=== PATIENT | female | born 1950 | race African-American/Black ===

== ENCOUNTER 2023-06-15 20:18 | Emergency (ER) | payer OTHER, BC ==
[2023-06-15 20:44] VITALS: BP 160/90; PULSE 107; RESP 18; TEMP 98.9; BMI 30.1
== END 2023-06-15 21:58 | disposition home or self-care (01) ==
LOC: JERFT 20:18 → JER 20:18 → JERFT 21:58
DX: S92.901A Unspecified fracture of right foot, initial encounter for closed fracture (principal); M79.671 Pain in right foot; M25.571 Pain in right ankle and joints of right foot; R22.41 Localized swelling, mass and lump, right lower limb
CPT/HCPCS: 73610-TC-RT-FY; 73630-TC-RT-FY; 99283-25

== ENCOUNTER 2023-09-29 23:12 | Inpatient (IN) | payer OTHER, BC ==
[2023-09-30 02:04] LABS: BASO % 0.2 % (0-2.0); EOS % 0.1 % (0-4.5); HEMATOCRIT 37.8 % (32.4-45.2); HEMOGLOBIN 12.4 GM/dL (10.7-15.3); LYMPH % 17.2 % (8-40); MCH 28.2 pg (25.7-33.7); MCHC 32.9 g/dl (32.0-36.0); MEAN CELL VOLUME 85.8 fl (80-96); MEAN PLT VOLUME 9.4 fl (7.5-11.1); MONO % 6.9 % (3.8-10.2); NEUT % 75.6 % (42.8-82.8); PLATELET COUNT 278 10^3/uL (134-434); RBC 4.41 M/mm3 (3.60-5.2); RDW 14.8 % (11.6-15.6); WHITE BLOOD COUNT 15.5 K/mm3 (4.0-10.0)
[2023-09-30 02:18] LABS: CHLORIDE 100 mmol/L (98-107); SODIUM 141 mmol/L (136-145)
[2023-09-30 02:20] LABS: BLOOD UREA NITROGEN 24.6 mg/dL (7-18); CALCIUM 10.2 mg/dL (8.5-10.1); CO2 31 mmol/L (21-32)
[2023-09-30 02:21] LABS: GLUCOSE,RANDOM 95 mg/dL (74-106)
[2023-09-30 02:23] LABS: SGPT/ALT 12 U/L (13-61)
[2023-09-30 02:24] LABS: CREATININE 1.1 mg/dL (0.55-1.3); SGOT/AST 27 U/L (15-37)
[2023-09-30 02:25] LABS: BILIRUBIN,TOTAL 0.9 mg/dL (0.2-1); TOT PROT 8.5 g/dl (6.4-8.2)
[2023-09-30 02:27] LABS: ALK PHOS 116 U/L (45-117)
[2023-09-30 03:01] LABS: ANION GAP 11 mmol/L (4-13); POTASSIUM 2.8 mmol/L (3.5-5.1)
[2023-09-30 03:03] LABS: EPI CELLS 30 /uL (0-25.1); HYALINE CASTS 2 /uL (0-3.1); PH,URINE 5.5 (5.0-8.0); URINE APPEARANCE TURBID; URINE BACTERIA 91 /uL (0-1359); URINE BILIRUBIN 2+ (NEGATIVE); URINE COLOR DK YELLOW; URINE GLUCOSE (UA) NEGATIVE (NEGATIVE); URINE KETONE 2+ (NEGATIVE); URINE LEUK ESTERASE 1+ (NEGATIVE); URINE NITRITE NEGATIVE (NEGATIVE); URINE PROTEIN 2+ (NEGATIVE); URINE RBC 6 /uL (0-23.9); URINE WBC 37 /uL (0-25.8)
[2023-09-30 03:08] LABS: COCAINE, UR NEGATIVE (NEGATIVE); METHADONE, UR NEGATIVE (NEGATIVE); PHENCYCLIDINE,URINE NEGATIVE (NEGATIVE); URINE BENZODIAZEPINES NEGATIVE (NEGATIVE)
[2023-09-30 03:09] LABS: URINE AMPHETAMINES NEGATIVE (NEGATIVE); URINE BARBITURATES NEGATIVE (NEGATIVE)
[2023-09-30 03:10] LABS: OPIATES, URI POSITIVE (NEGATIVE)
[2023-09-30] MEDS ORDERED: POTASSIUM CHLORIDE ORAL LIQUID 20 MEQ/15 ML PO ONE (03:15)
[2023-09-30] MEDS ORDERED: KCL 10 MEQ IVPB 20 MEQ/200 ML INFUS.BAG IVPB ONE (04:09)
[2023-09-30] MEDS ORDERED: POTASSIUM CHLORIDE ORAL LIQUID 20 MEQ/15 ML ONE (04:09)
[2023-09-30] MEDS: KCL 10 MEQ IVPB 10 MEQ/100 ML INFUS.BAG IVPB SCH ×3 (04:30→09:03)
[2023-09-30 05:17] LABS: URINE CRYSTALS NONE SEEN /hpf
[2023-09-30] MEDS ORDERED: CEFTRIAXONE 1,000 MG in DEXTROSE 5%-WATER - 50 ML IVPB ONE (05:32)
[2023-09-30] MEDS ORDERED: AZITHROMYCIN IVPB 500 MG in DEXTROSE 5%-WATER - 250 ML IVPB ONE (05:33)
[2023-09-30] MEDS ORDERED: DOCUSATE SODIUM 100 MG CAPSULE (FP) PO PRN (05:33)
[2023-09-30] MEDS ORDERED: ACETAMINOPHEN 325 MG TABLET (FP) PO PRN (05:33)
[2023-09-30] MEDS ORDERED: CEFTRIAXONE 1 GM/50 ML BAG ONE (06:05)
[2023-09-30] MEDS: DEXTROSE 5%-NORMAL SALINE 1,000 ML IV SCH ×2 (06:20→21:39)
[2023-09-30 08:51] LABS: LIPASE 184 U/L (73-393)
[2023-09-30] MEDS ORDERED: KCL 10 MEQ IVPB 10 MEQ/100 ML INFUS.BAG IVPB ONE (09:03)
[2023-09-30] MEDS ORDERED: AZITHROMYCIN IVPB 500 MG/250 ML BAG IVPB ONE ×2 (09:30→10:31)
[2023-09-30] MEDS ORDERED: ACETAMINOPHEN WITH CODEINE 300MG/30MG TABLET PO PRN (09:36)
[2023-09-30] MEDS ORDERED: ALBUTEROL SO4 HFA INHALER IH PRN (09:40)
[2023-09-30] MEDS ORDERED: LOSARTAN POTASSIUM 25 MG TABLET ONE (10:50)
[2023-09-30] MEDS: SERTRALINE HCL 50 MG TABLET (FP) PO SCH (11:14)
[2023-09-30] MEDS: LOSARTAN POTASSIUM 50 MG TABLET PO SCH (11:14)
[2023-09-30 11:53] LABS: ALBUMIN 3.5 g/dl (3.4-5.0); MAGNESIUM 2.1 mg/dL (1.8-2.4)
[2023-09-30 11:58] LABS: BILIRUBIN,TOTAL 0.9 mg/dL (0.2-1); TOT PROT 7.7 g/dl (6.4-8.2)
[2023-09-30 13:03] LABS: POTASSIUM 3.3 mmol/L (3.5-5.1)
[2023-09-30 13:04] LABS: CALCIUM 9.7 mg/dL (8.5-10.1)
[2023-09-30 13:13] LABS: ACTIVATED PTT 36.2 SECONDS (25.2-36.5); INR 1.2 (0.83-1.09); PROTHROMBIN TIME (PATIENT) 13.9 SEC (9.7-13.0)
[2023-09-30] MEDS ORDERED: GABAPENTIN 300 MG CAPSULE ONE (14:48)
[2023-09-30] MEDS: GABAPENTIN 300 MG CAPSULE PO SCH ×2 (14:50→21:30)
[2023-09-30] MEDS ORDERED: POTASSIUM CHLORIDE TABS 20 MEQ TABLET.ER (FP) PO ONE ×2 (15:42→16:40)
[2023-09-30 19:54] VITALS: BMI 27.3
[2023-10-01] MEDS: GABAPENTIN 300 MG CAPSULE PO SCH ×3 (05:17→22:01)
[2023-10-01 10:13] LABS: BASO % 0.5 % (0-2.0); EOS % 1.8 % (0-4.5); HEMATOCRIT 36.1 % (32.4-45.2); HEMOGLOBIN 11.4 GM/dL (10.7-15.3); LYMPH % 20.5 % (8-40); MCH 27.6 pg (25.7-33.7); MCHC 31.7 g/dl (32.0-36.0); MEAN CELL VOLUME 87.1 fl (80-96); MEAN PLT VOLUME 9.1 fl (7.5-11.1); MONO % 8.3 % (3.8-10.2); NEUT % 68.9 % (42.8-82.8); PLATELET COUNT 264 10^3/uL (134-434); RBC 4.15 M/mm3 (3.60-5.2); RDW 14.9 % (11.6-15.6); WHITE BLOOD COUNT 13.2 K/mm3 (4.0-10.0)
[2023-10-01] MEDS: CEFTRIAXONE 1 GM in DEXTROSE 5%-WATER - 50 ML IVPB SCH (10:45)
[2023-10-01] MEDS: LOSARTAN POTASSIUM 50 MG TABLET PO SCH (10:45)
[2023-10-01] MEDS: SERTRALINE HCL 50 MG TABLET (FP) PO SCH (10:45)
[2023-10-01] MEDS: AZITHROMYCIN IVPB 500 MG/250 ML BAG IVPB SCH (10:46)
[2023-10-01 11:22] LABS: BLOOD UREA NITROGEN 13.6 mg/dL (7-18); CALCIUM 9.4 mg/dL (8.5-10.1); CREATININE 0.9 mg/dL (0.55-1.3); POTASSIUM 3.4 mmol/L (3.5-5.1)
[2023-10-01] MEDS: DEXTROSE 5%-NORMAL SALINE 1,000 ML IV SCH (14:59)
[2023-10-02] MEDS: DEXTROSE 5%-NORMAL SALINE 1,000 ML IV SCH (05:00)
[2023-10-02] MEDS: GABAPENTIN 300 MG CAPSULE PO SCH ×3 (06:23→22:15)
[2023-10-02 07:20] LABS: BASO % 0.3 % (0-2.0); EOS % 1.6 % (0-4.5); HEMATOCRIT 32.9 % (32.4-45.2); HEMOGLOBIN 10.4 GM/dL (10.7-15.3); MCH 28.1 pg (25.7-33.7); MCHC 31.5 g/dl (32.0-36.0); MEAN CELL VOLUME 89.2 fl (80-96); MEAN PLT VOLUME 9.6 fl (7.5-11.1); MONO % 8.4 % (3.8-10.2); NEUT % 66.7 % (42.8-82.8); PLATELET COUNT 245 10^3/uL (134-434); RBC 3.69 M/mm3 (3.60-5.2); RDW 14.8 % (11.6-15.6); WHITE BLOOD COUNT 12.2 K/mm3 (4.0-10.0)
[2023-10-02 07:36] LABS: POTASSIUM 3.3 mmol/L (3.5-5.1)
[2023-10-02 07:41] LABS: CREATININE 0.8 mg/dL (0.55-1.3)
[2023-10-02 07:43] LABS: ALBUMIN 3.1 g/dl (3.4-5.0); BLOOD UREA NITROGEN 13.4 mg/dL (7-18)
[2023-10-02 07:47] LABS: BILIRUBIN,TOTAL 0.6 mg/dL (0.2-1)
[2023-10-02 07:48] LABS: TOT PROT 6.8 g/dl (6.4-8.2)
[2023-10-02] MEDS: LOSARTAN POTASSIUM 50 MG TABLET PO SCH (09:59)
[2023-10-02] MEDS: CEFTRIAXONE 1 GM in DEXTROSE 5%-WATER - 50 ML IVPB SCH (09:59)
[2023-10-02] MEDS: SERTRALINE HCL 50 MG TABLET (FP) PO SCH (09:59)
[2023-10-02] MEDS: AZITHROMYCIN IVPB 500 MG/250 ML BAG IVPB SCH (10:10)
[2023-10-02] MEDS: POTASSIUM CHLORIDE ORAL LIQUID 20 MEQ/15 ML PO SCH (22:15)
[2023-10-03] MEDS: GABAPENTIN 300 MG CAPSULE PO SCH ×2 (07:09→14:08)
[2023-10-03 08:04] LABS: BASO % 0.3 % (0-2.0); EOS % 2.4 % (0-4.5); HEMATOCRIT 35.1 % (32.4-45.2); HEMOGLOBIN 11.2 GM/dL (10.7-15.3); LYMPH % 20.7 % (8-40); MCH 28.4 pg (25.7-33.7); MCHC 31.9 g/dl (32.0-36.0); MEAN CELL VOLUME 89.2 fl (80-96); MEAN PLT VOLUME 9.5 fl (7.5-11.1); MONO % 7.3 % (3.8-10.2); NEUT % 69.3 % (42.8-82.8); PLATELET COUNT 238 10^3/uL (134-434); RBC 3.93 M/mm3 (3.60-5.2); RDW 14.7 % (11.6-15.6); WHITE BLOOD COUNT 11.5 K/mm3 (4.0-10.0)
[2023-10-03 08:12] LABS: POTASSIUM 4.1 mmol/L (3.5-5.1)
[2023-10-03 08:14] LABS: ALBUMIN 3.4 g/dl (3.4-5.0); BLOOD UREA NITROGEN 10.1 mg/dL (7-18); CALCIUM 9.6 mg/dL (8.5-10.1)
[2023-10-03 08:17] LABS: CREATININE 0.8 mg/dL (0.55-1.3)
[2023-10-03 08:19] LABS: BILIRUBIN,TOTAL 0.5 mg/dL (0.2-1); TOT PROT 7.5 g/dl (6.4-8.2)
[2023-10-03] MEDS: CEFTRIAXONE 1 GM in DEXTROSE 5%-WATER - 50 ML IVPB SCH (10:47)
[2023-10-03] MEDS: POTASSIUM CHLORIDE ORAL LIQUID 20 MEQ/15 ML PO SCH (10:47)
[2023-10-03] MEDS: SERTRALINE HCL 50 MG TABLET (FP) PO SCH (10:48)
[2023-10-03] MEDS: AZITHROMYCIN IVPB 500 MG/250 ML BAG IVPB SCH ×2 (10:48→11:15)
[2023-10-03] MEDS: LOSARTAN POTASSIUM 50 MG TABLET PO SCH (10:48)
[2023-10-03 13:47] VITALS: BP 152/88; PULSE 90; RESP 18; TEMP 98.4
== END 2023-10-03 17:04 | disposition home or self-care (01) | DRG 193 ==
LOC: JER 23:12 → JERBED 09-30 05:33 → J4W 09-30 18:23
PROVIDERS: ADMIT Internal Medicine; ATTEND Family Medicine
DX: J18.9 Pneumonia, unspecified organism (principal); G93.41 Metabolic encephalopathy; E87.6 Hypokalemia; I10 Essential (primary) hypertension; I25.10 Atherosclerotic heart disease of native coronary artery without angina pectoris; F17.210 Nicotine dependence, cigarettes, uncomplicated
CPT/HCPCS: 0241U-QW; 36415; 70450-TC; 70551-TC; 71045-TC-FY; 71250-TC; 72170-TC-FY; 74176-TC; 80048; 80053; 80307; 81003; 82140; 83690; 83735; 83993; 84484; 85025; 85610; 85730; 86480; 87040; 87045; 87046; 87086; 87186; 87205; 87209; 87324; 87449; 87899; 93005; 93010; 99285-25

== ENCOUNTER 2024-06-28 19:17 | Inpatient (IN) | payer OTHER, BC ==
[2024-06-28 19:51] VITALS: BMI 30.7
[2024-06-28] MEDS ORDERED: ACETAMINOPHEN INJECTION 100 ML ONE (19:59)
[2024-06-28] MEDS: SODIUM CHLORIDE 1,000 ML IV STA ×2 (20:16→23:14)
[2024-06-28] MEDS: ACETAMINOPHEN 1000 MG/100 ML BAG IVPB ONE (20:16)
[2024-06-28 20:27] LABS: BASO % 0.3 % (0-2.0); EOS % 1.5 % (0-4.5); HEMOGLOBIN 8.8 GM/dL (10.7-15.3); MCH 25.5 pg (25.7-33.7); MCHC 31.4 g/dl (32.0-36.0); MEAN CELL VOLUME 81.2 fl (80-96); MONO % 8.1 % (3.8-10.2); NEUT % 69.1 % (42.8-82.8); PLATELET COUNT 271 10^3/uL (134-434); RBC 3.45 M/mm3 (3.60-5.2); RDW 17.7 % (11.6-15.6); WHITE BLOOD COUNT 12.6 K/mm3 (4.0-10.0)
[2024-06-28 20:46] LABS: INR 1.09 (0.83-1.09); PROTHROMBIN TIME (PATIENT) 12.5 SEC (9.7-13.0)
[2024-06-28 20:48] LABS: ACTIVATED PTT 37.2 SECONDS (25.2-36.5)
[2024-06-28 20:53] LABS: POTASSIUM 4.5 mmol/L (3.5-5.1)
[2024-06-28 20:55] LABS: ALBUMIN 3.6 g/dl (3.4-5.0); BLOOD UREA NITROGEN 39.8 mg/dL (7-18)
[2024-06-28 20:59] LABS: CREATININE 3.9 mg/dL (0.55-1.3); PHOSPHOROUS 4.3 mg/dL (2.5-4.9)
[2024-06-28 21:00] LABS: BILIRUBIN,TOTAL 0.2 mg/dL (0.2-1); TOT PROT 7.7 g/dl (6.4-8.2)
[2024-06-28] MEDS: LACTATED RINGERS SOLUTION 1000 ML INFUS.BAG IV ONE (23:14)
[2024-06-28] MEDS ORDERED: FENTANYL CITRATE/PF 50 MCG/ML VIAL ONE (23:43)
[2024-06-29 01:05] LABS: EPI CELLS 10 /uL (0-25.1); HYALINE CASTS 5 /uL (0-3.1); URINE APPEARANCE CLEAR; URINE BACTERIA 1 /uL (0-1359); URINE BILIRUBIN NEGATIVE (NEGATIVE); URINE COLOR YELLOW; URINE GLUCOSE (UA) NEGATIVE (NEGATIVE); URINE KETONE TRACE (NEGATIVE); URINE LEUK ESTERASE NEGATIVE (NEGATIVE); URINE NITRITE NEGATIVE (NEGATIVE); URINE PROTEIN 1+ (NEGATIVE); URINE RBC 9 /uL (0-23.9); URINE UROBILINOGEN 0.2 mg/dL (0.2-1.0); URINE WBC 16 /uL (0-25.8)
[2024-06-29] MEDS: ACETAMINOPHEN 1000 MG/100 ML BAG IVPB ONE (04:19)
[2024-06-29 06:11] LABS: BASO % 0.2 % (0-2.0); EOS % 1.7 % (0-4.5); HEMATOCRIT 31.8 % (32.4-45.2); HEMOGLOBIN 9.9 GM/dL (10.7-15.3); LYMPH % 20.3 % (8-40); MCH 25.7 pg (25.7-33.7); MCHC 31.2 g/dl (32.0-36.0); MEAN CELL VOLUME 82.4 fl (80-96); MEAN PLT VOLUME 8.5 fl (7.5-11.1); MONO % 7.9 % (3.8-10.2); NEUT % 69.9 % (42.8-82.8); PLATELET COUNT 285 10^3/uL (134-434); RBC 3.86 M/mm3 (3.60-5.2); RDW 17.6 % (11.6-15.6); WHITE BLOOD COUNT 13.1 K/mm3 (4.0-10.0)
[2024-06-29 06:33] LABS: POTASSIUM 3.8 mmol/L (3.5-5.1)
[2024-06-29 06:35] LABS: CALCIUM 9.8 mg/dL (8.5-10.1)
[2024-06-29 06:36] LABS: ALBUMIN 3.3 g/dl (3.4-5.0); BLOOD UREA NITROGEN 32.9 mg/dL (7-18); MAGNESIUM 1.8 mg/dL (1.8-2.4)
[2024-06-29 06:39] LABS: CREATININE 2.2 mg/dL (0.55-1.3)
[2024-06-29 06:40] LABS: BILIRUBIN,TOTAL 0.4 mg/dL (0.2-1); TOT PROT 7.4 g/dl (6.4-8.2)
[2024-06-29] MEDS: metoPROLOL SUCCINATE 25 MG TAB.SR.24H (FP) PO SCH (11:51)
[2024-06-29] MEDS: NICOTINE 14 MG/24 HOURS TOPICAL PATCH TD SCH (11:51)
[2024-06-29] MEDS: SERTRALINE HCL 50 MG TABLET (FP) PO SCH (11:51)
[2024-06-29] MEDS: oxyCODONE HCL 5 MG TABLET PO PRN (14:04)
[2024-06-29] MEDS: GABAPENTIN 300 MG CAPSULE PO SCH (14:04)
[2024-06-29] MEDS: SODIUM CHLORIDE 0.45% 1,000 ML IV SCH (14:09)
[2024-06-29] MEDS: FLUTICASONE/UMECLIDIN/VILANTER(100-62.5-25 TRELEGY ELLIPTA) INAHLER IH SCH (15:59)
[2024-06-29] MEDS: MONTELUKAST NA 10 MG TABLET PO SCH (21:37)
[2024-06-30 08:11] LABS: BASO % 0.5 % (0-2.0); EOS % 1.3 % (0-4.5); HEMOGLOBIN 8.9 GM/dL (10.7-15.3); LYMPH % 19.1 % (8-40); MCHC 31.9 g/dl (32.0-36.0); MEAN CELL VOLUME 81.5 fl (80-96); MEAN PLT VOLUME 8.2 fl (7.5-11.1); MONO % 6.8 % (3.8-10.2); NEUT % 72.3 % (42.8-82.8); PLATELET COUNT 274 10^3/uL (134-434); RBC 3.43 M/mm3 (3.60-5.2); WHITE BLOOD COUNT 10.8 K/mm3 (4.0-10.0)
[2024-06-30 08:15] LABS: POTASSIUM 4.1 mmol/L (3.5-5.1)
[2024-06-30 08:18] LABS: BLOOD UREA NITROGEN 16.9 mg/dL (7-18); CALCIUM 10.2 mg/dL (8.5-10.1)
[2024-06-30 08:22] LABS: CREATININE 0.8 mg/dL (0.55-1.3)
[2024-06-30 08:23] LABS: BILIRUBIN,TOTAL 0.4 mg/dL (0.2-1); TOT PROT 6.7 g/dl (6.4-8.2)
[2024-06-30] MEDS: ACETAMINOPHEN 1000 MG/100 ML BAG IVPB PRN (12:02)
[2024-06-30] MEDS: LIDOCAINE 4% PATCH TP SCH (22:47)
[2024-06-30] MEDS: ACETAMINOPHEN 1000 MG/100 ML BAG IVPB ONE (23:27)
[2024-07-01 09:35] LABS: BLOOD UREA NITROGEN 9.4 mg/dL (7-18)
[2024-07-01 09:37] LABS: CREATININE 0.7 mg/dL (0.55-1.3)
[2024-07-01 09:39] LABS: BILIRUBIN,TOTAL 0.7 mg/dL (0.2-1)
[2024-07-01] MEDS: LIDOCAINE PATCH REMOVAL MC SCH (11:01)
[2024-07-01] MEDS: oxyCODONE HCL 5 MG TABLET PO ONE (16:44)
[2024-07-01] MEDS: oxyCODONE HCL 5 MG TABLET PO PRN (21:19)
[2024-07-03 12:12] VITALS: RESP 17; TEMP 98.4
[2024-07-03] MEDS: ACETAMINOPHEN 325 MG TABLET (FP) PO SCH (13:50)
[2024-07-03 14:41] VITALS: BP 138/71; PULSE 75
== END 2024-07-03 15:57 | DRG 683 ==
LOC: JER 19:17 → JERBED 23:39 → J4S 06-29 06:36
PROVIDERS: ADMIT Internal Medicine; ATTEND Family Medicine
DX: N17.9 Acute kidney failure, unspecified (principal); I24.89 Other forms of acute ischemic heart disease; M62.82 Rhabdomyolysis; I10 Essential (primary) hypertension; I25.10 Atherosclerotic heart disease of native coronary artery without angina pectoris; M25.552 Pain in left hip; F32.A Depression, unspecified; R91.8 Other nonspecific abnormal finding of lung field; F17.210 Nicotine dependence, cigarettes, uncomplicated; N28.1 Cyst of kidney, acquired; W19.XXXA Unspecified fall, initial encounter; Y93.89 Activity, other specified; Y92.002 Bathroom of unspecified non-institutional (private) residence as the place of occurrence of the external cause; Y99.8 Other external cause status
CPT/HCPCS: 36415; 70450-TC; 71045-TC-FY; 72125-TC; 72170-TC-FY; 73502-TC-LT-FY; 74176-TC; 80053; 80061; 81003; 82550; 82553; 82728; 82962; 83550; 83735; 84100; 84443; 84484; 85025; 85610; 85730; 87086; 87635; 93005; 93010; 93306-TC; 97116-GP; 97162-GP; 99285-25; J0131

== ENCOUNTER 2025-05-04 02:03 | Inpatient (IN) | payer OTHER, BC ==
[2025-05-04 02:10] VITALS: BMI 25.7
[2025-05-04 02:52] LABS: MCHC 30.5 g/dl (32.2-35.5); MEAN CELL VOLUME 84.4 fl (79.4-94.8); MEAN PLT VOLUME 10.1 fl (9.4-12.3); RDW 16.6 % (12.4-16.6)
[2025-05-04 03:02] LABS: INR 1.22 (0.83-1.09); PROTHROMBIN TIME (PATIENT) 13.3 SEC (9.7-13.0)
[2025-05-04 03:05] LABS: ACTIVATED PTT 30.9 SECONDS (25.2-36.5)
[2025-05-04 03:11] LABS: CO2 26 mmol/L (21-32)
[2025-05-04 03:13] LABS: GLUCOSE,RANDOM 102 mg/dL (74-106)
[2025-05-04 03:14] LABS: CREATININE 2.0 mg/dL (0.55-1.3); SGOT/AST 30 U/L (15-37); SGPT/ALT 10 U/L (13-61)
[2025-05-04 03:16] LABS: TOT PROT 6.7 g/dl (6.4-8.2)
[2025-05-04 03:18] LABS: ALK PHOS 119 U/L (45-117); LDL CHOLESTEROL (ONLY SJRH) 26 mg/dL (5-100)
[2025-05-04] MEDS: SODIUM CHLORIDE 1,000 ML IV SCH (03:23)
[2025-05-04 03:25] LABS: EPI CELLS 11 /uL (0-25.1); HYALINE CASTS 2 /uL (0-3.1); URINE APPEARANCE CLEAR; URINE BACTERIA 1 /uL (0-1359); URINE BILIRUBIN NEGATIVE (NEGATIVE); URINE COLOR YELLOW; URINE GLUCOSE (UA) NEGATIVE (NEGATIVE); URINE KETONE TRACE (NEGATIVE); URINE LEUK ESTERASE TRACE (NEGATIVE); URINE NITRITE NEGATIVE (NEGATIVE); URINE PROTEIN 1+ (NEGATIVE); URINE RBC 23 /uL (0-23.9); URINE UROBILINOGEN 0.2 mg/dL (0.2-1.0); URINE WBC 41 /uL (0-25.8)
[2025-05-04] MEDS ORDERED: PIPERACILLIN/TAZOB 4.5 GM 4.5 GM/100 ML BAG IVPB ONE (04:23)
[2025-05-04] MEDS: PIPERACILLIN/TAZOB 4.5 GM 4.5 GM in DEXTROSE 5%-WATER 100 ML IVPB ONE (04:30)
[2025-05-04] MEDS ORDERED: KCL 10 MEQ IVPB 30 MEQ/300 ML INFUS.BAG IVPB ONE (04:48)
[2025-05-04] MEDS: KCL 10 MEQ IVPB 10 MEQ/100 ML INFUS.BAG IVPB SCH (04:53)
[2025-05-04 06:00] LABS: HCV DIAGNOSTIC IN-HOUSE W/RFLX NON-REACTIVE (NONREACTIVE); HIV INTERPRETATION NEGATIVE (NEGATIVE); LDH 197 U/L (84-246)
[2025-05-04 06:22] LABS: IRON SERUM 33 ug/dL (50-175)
[2025-05-04 06:28] LABS: ABSOLUTE IMMATURE GRANULOCYTES 0.09 x10^3/uL (0.0-0.031); BASOPHILS # 0.04 x10^3/uL (0.01-0.08); EOSINOPHIL % 1.0 % (0.7-5.8); EOSINOPHILS # 0.19 x10^3/uL (0.04-0.36); MONOCYTE # 0.96 x10^3/uL (0.24-0.86); MONOCYTE % 5.2 % (4.7-12.5)
[2025-05-04] MEDS ORDERED: VANCOMYCIN 1 GM PREMIX (F) 1 GM/200 ML BAG ONE (07:42)
[2025-05-04] MEDS: VANCOMYCIN 1,000 MG in DEXTROSE 5%-WATER - 250 ML IVPB ONE (07:50)
[2025-05-04] MEDS ORDERED: PIPERACILLIN/TAZOB 2.25 GM 2.25 GM in DEXTROSE 5%-WATER - 50 ML IVPB SCH (09:00)
[2025-05-04] MEDS: LORazepam 4 MG/1 ML VIAL IVPUSH PRN (11:21)
[2025-05-04] MEDS ORDERED: PIPERACILLIN/TAZOB 2.25 GM 2.25 GM/50 ML BAG IVPB ONE ×2 (11:25→16:18)
[2025-05-04 11:51] LABS: ABSOLUTE IMMATURE GRANULOCYTES 0.08 x10^3/uL (0.0-0.031); BASOPHILS # 0.04 x10^3/uL (0.01-0.08); EOSINOPHIL % 0.6 % (0.7-5.8); EOSINOPHILS # 0.09 x10^3/uL (0.04-0.36); MCHC 30.9 g/dl (32.2-35.5); MEAN CELL VOLUME 83.5 fl (79.4-94.8); MEAN PLT VOLUME 10.1 fl (9.4-12.3); MONOCYTE # 0.82 x10^3/uL (0.24-0.86); MONOCYTE % 5.6 % (4.7-12.5); RDW 16.6 % (12.4-16.6)
[2025-05-04] MEDS: PIPERACILLIN/TAZOB 2.25 GM 2.25 GM in DEXTROSE 5%-WATER - 50 ML IVPB SCH (11:56)
[2025-05-04] MEDS ORDERED: MAGNESIUM SULFATE IN WATER 2 GM/50 ML IVPB IVPB ONE (12:08)
[2025-05-04 12:14] LABS: CO2 30.0 mmol/L (21-32); GLUCOSE,RANDOM 91.0 mg/dL (74-106)
[2025-05-04 12:17] LABS: CREATININE 1.3 mg/dL (0.55-1.3)
[2025-05-04] MEDS: SODIUM CHLORIDE 500 ML IV STA (12:20)
[2025-05-04 13:09] LABS: LDH 178.0 U/L (84-246)
[2025-05-04] MEDS: MAGNESIUM SULFATE IN WATER 2 GM/50 ML IVPB IVPB ONE (13:16)
[2025-05-04] MEDS ORDERED: levETIRAcetam 500 MG/5 ML INJECTION VIAL IVPB ONE (15:03)
[2025-05-04 15:29] LABS: IRON SERUM 37.0 ug/dL (50-175)
[2025-05-04] MEDS: SODIUM CHLORIDE 0.45%/POT 20 MEQ/1,000 ML INFUS.BAG IV SCH ×2 (15:29→16:24)
[2025-05-04] MEDS: levETIRAcetam 500 MG/5 ML INJECTION VIAL IVPB ONE (15:29)
[2025-05-04] MEDS: SODIUM CHLORIDE 0.9% 500 ML INFUS.BAG IV ONE (15:34)
[2025-05-04] MEDS ORDERED: LORazepam 2 MG/ML SDV VIAL IVPUSH PRN (23:35)
[2025-05-05] MEDS ORDERED: LORazepam 4 MG/1 ML VIAL IVPUSH PRN (05:29)
[2025-05-05 08:51] LABS: ABSOLUTE IMMATURE GRANULOCYTES 0.08 x10^3/uL (0.0-0.031); BASOPHILS # 0.06 x10^3/uL (0.01-0.08); EOSINOPHIL % 2.0 % (0.7-5.8); EOSINOPHILS # 0.25 x10^3/uL (0.04-0.36); MCHC 30.2 g/dl (32.2-35.5); MEAN CELL VOLUME 83.2 fl (79.4-94.8); MEAN PLT VOLUME 9.8 fl (9.4-12.3); MONOCYTE # 0.52 x10^3/uL (0.24-0.86); MONOCYTE % 4.1 % (4.7-12.5); RDW 16.6 % (12.4-16.6)
[2025-05-05 09:30] LABS: CO2 27.0 mmol/L (21-32); GLUCOSE,RANDOM 70.0 mg/dL (74-106)
[2025-05-05 09:33] LABS: CREATININE 0.7 mg/dL (0.55-1.3)
[2025-05-05] MEDS: DOCUSATE SODIUM 100 MG CAPSULE (FP) PO PRN (09:57)
[2025-05-05] MEDS: ACETAMINOPHEN 1000 MG/100 ML BAG IVPB PRN (15:06)
[2025-05-05] MEDS ORDERED: ALBUTEROL SO4 2.5/IPRATROPIUM 0.5 INH SOL 3 ML VIAL.NEB. NEB PRN (15:26)
[2025-05-05] MEDS: levETIRAcetam 500 MG TABLET (FP) PO SCH (17:36)
[2025-05-06 07:33] VITALS: PULSE 105
[2025-05-06] MEDS: PIPERACILLIN/TAZOB 2.25 GM 2.25 GM in DEXTROSE 5%-WATER - 50 ML IVPB ONE (10:24)
[2025-05-06 16:32] VITALS: BP 155/90; RESP 16; TEMP 97.3
[2025-05-06] MEDS: DOXYCYCLINE HYCLATE 100 MG TABLET PO SCH (17:21)
== END 2025-05-06 18:44 | disposition left against medical advice (07) | DRG 100 ==
LOC: JER 02:03 → JERBED 04:09 → J4S 14:10 → JERBED 15:50 → J4S 18:55
PROVIDERS: ADMIT Family Medicine; ATTEND Family Medicine
DX: R56.9 Unspecified convulsions (principal); J18.9 Pneumonia, unspecified organism; C34.90 Malignant neoplasm of unspecified part of unspecified bronchus or lung; N17.9 Acute kidney failure, unspecified; M62.82 Rhabdomyolysis; Z85.3 Personal history of malignant neoplasm of breast; I25.10 Atherosclerotic heart disease of native coronary artery without angina pectoris; D64.9 Anemia, unspecified; I10 Essential (primary) hypertension; E78.5 Hyperlipidemia, unspecified; E87.6 Hypokalemia; F17.210 Nicotine dependence, cigarettes, uncomplicated
CPT/HCPCS: 36415; 70450-TC; 71045-TC-FY; 71250-TC; 72125-TC; 80048; 80053; 80061; 81003; 82272; 82550; 82553; 82728; 82962; 83036; 83540; 83550; 83615; 83735; 84100; 84146; 84484; 85025; 85610; 85730; 86803; 86850; 86900; 86901; 87040; 87070; 87086; 87205; 87389; 93005; 93010; 99285-25; J3480

== ENCOUNTER 2025-07-14 12:10 | Inpatient (IN) | payer OTHER, BC ==
[2025-07-14] MEDS ORDERED: PIPERACILLIN/TAZOB 3.375 GM 3.375 GM/50 ML BAG IVPB ONE (13:33)
[2025-07-14] MEDS ORDERED: ACETAMINOPHEN INJECTION 100 ML ONE (13:33)
[2025-07-14] MEDS ORDERED: VANCOMYCIN 1 GM PREMIX (F) 1 GM/200 ML BAG ONE (13:34)
[2025-07-14 15:00] LABS: ABSOLUTE IMMATURE GRANULOCYTES 0.10 x10^3/uL (0.0-0.031); BASOPHILS # 0.06 x10^3/uL (0.01-0.08); BG HCT 24.0 % (32.4-45.2); EOSINOPHIL % 0.2 % (0.7-5.8); EOSINOPHILS # 0.04 x10^3/uL (0.04-0.36); MCHC 30.6 g/dl (32.2-35.5); MEAN CELL VOLUME 78.2 fl (79.4-94.8); MEAN PLT VOLUME 10.2 fl (9.4-12.3); MONOCYTE # 1.06 x10^3/uL (0.24-0.86); MONOCYTE % 6.1 % (4.7-12.5); RDW 17.5 % (12.4-16.6); VENOUS BASE EXCESS 3.3 mmol/L (-2-2); VENOUS O2 SATURATION 73.4 % (70-80); VENOUS PCO2 39.5 mmHg (38-52); VENOUS PH 7.459 (7.310-7.410)
[2025-07-14] MEDS: SODIUM CHLORIDE 0.9% 500 ML INFUS.BAG IV ONE ×3 (15:00→16:03)
[2025-07-14] MEDS: ACETAMINOPHEN 1000 MG/100 ML BAG IVPB ONE (15:05)
[2025-07-14 15:07] LABS: INR 1.18 (0.83-1.09); PROTHROMBIN TIME (PATIENT) 12.9 SEC (9.7-13.0)
[2025-07-14 15:10] LABS: ACTIVATED PTT 36.9 SECONDS (25.2-36.5)
[2025-07-14 15:21] LABS: GLUCOSE,RANDOM 99 mg/dL (74-106); TOT PROT 7.5 g/dl (6.4-8.2)
[2025-07-14 15:22] LABS: CO2 23 mmol/L (21-32)
[2025-07-14 15:24] LABS: ALK PHOS 101 U/L (40-150)
[2025-07-14 15:27] LABS: CREATININE 0.78 mg/dL (0.55-1.3); SGOT/AST 20 U/L (5-34)
[2025-07-14 15:33] LABS: SGPT/ALT < 6 U/L (0-55)
[2025-07-14] MEDS: PIPERACILLIN/TAZOB 3.375 GM 3.375 GM in DEXTROSE 5%-WATER - 50 ML IVPB ONE (15:40)
[2025-07-14] MEDS: VANCOMYCIN 1,000 MG in DEXTROSE 5%-WATER - 250 ML IVPB ONE (15:52)
[2025-07-14 17:07] LABS: EPI CELLS 34 /uL (0-25.1); HYALINE CASTS 3 /uL (0-3.1); URINE APPEARANCE CLOUDY; URINE BACTERIA 240 /uL (0-1359); URINE BILIRUBIN NEGATIVE (NEGATIVE); URINE COLOR YELLOW; URINE GLUCOSE (UA) NEGATIVE (NEGATIVE); URINE KETONE 1+ (NEGATIVE); URINE LEUK ESTERASE TRACE (NEGATIVE); URINE NITRITE NEGATIVE (NEGATIVE); URINE PROTEIN 1+ (NEGATIVE); URINE RBC 36 /uL (0-23.9); URINE UROBILINOGEN 1.0 mg/dL (0.2-1.0); URINE WBC 59 /uL (0-25.8)
[2025-07-14] MEDS: DEXTROSE 5%-NORMAL SALINE 1,000 ML IV SCH (17:40)
[2025-07-14] MEDS: ACETAMINOPHEN 325 MG TABLET (FP) PO PRN (19:37)
[2025-07-15 06:45] LABS: MCHC 31.0 g/dl (32.2-35.5); MEAN CELL VOLUME 79.5 fl (79.4-94.8); MEAN PLT VOLUME 10.5 fl (9.4-12.3); RDW 17.5 % (12.4-16.6)
[2025-07-15 07:25] LABS: GLUCOSE,RANDOM 77 mg/dL (74-106); TOT PROT 6.4 g/dl (6.4-8.2)
[2025-07-15 07:27] LABS: CO2 21 mmol/L (21-32)
[2025-07-15 07:28] LABS: ALK PHOS 77 U/L (40-150)
[2025-07-15 07:31] LABS: CREATININE 0.63 mg/dL (0.55-1.3); SGOT/AST 21 U/L (5-34)
[2025-07-15 07:34] LABS: SGPT/ALT < 6 U/L (0-55)
[2025-07-15] MEDS: amLODIPine BESYLATE 5 MG TABLET (FP) PO SCH (11:23)
[2025-07-15] MEDS: SERTRALINE HCL 50 MG TABLET (FP) PO SCH (11:23)
[2025-07-16 08:58] VITALS: BMI 21.9
[2025-07-16] MEDS: ASCORBIC ACID 500 MG TABLET (FP) PO SCH (09:30)
[2025-07-16] MEDS: ZINC SULFATE 220 MG CAPSULE (FP) PO SCH (09:30)
[2025-07-16] MEDS: MULTIVITAMINS (DAILY MVI) TABLET (FP) PO SCH (09:30)
[2025-07-16 11:04] LABS: MCHC 31.7 g/dl (32.2-35.5); MEAN CELL VOLUME 78.9 fl (79.4-94.8); MEAN PLT VOLUME 10.1 fl (9.4-12.3); RDW 16.0 % (12.4-16.6)
[2025-07-16 11:25] LABS: GLUCOSE,RANDOM 94 mg/dL (74-106); TOT PROT 7.2 g/dl (6.4-8.2)
[2025-07-16 11:26] LABS: CO2 24 mmol/L (21-32)
[2025-07-16 11:28] LABS: ALK PHOS 94 U/L (40-150)
[2025-07-16 11:31] LABS: CREATININE 0.48 mg/dL (0.55-1.3); SGOT/AST 21 U/L (5-34)
[2025-07-16 11:36] LABS: SGPT/ALT < 6 U/L (0-55)
[2025-07-16] MEDS: PIPERACILLIN/TAZOB 3.375 GM 3.375 GM in DEXTROSE 5%-WATER - 50 ML IVPB SCH (14:15)
[2025-07-16] MEDS: VANCOMYCIN/WATER FOR INJ (PEG) 1,000 MG/200 ML BAG IVPB SCH (14:59)
[2025-07-16] MEDS: AMINO ACIDS/PROTEIN HYDROLYS 30 ML LIQUID.PKT PO SCH (17:04)
[2025-07-16] MEDS: POTASSIUM CHLORIDE ORAL LIQUID 20 MEQ/15 ML PO ONE (17:57)
[2025-07-17 07:50] LABS: MCHC 31.6 g/dl (32.2-35.5); MEAN CELL VOLUME 78.6 fl (79.4-94.8); MEAN PLT VOLUME 9.9 fl (9.4-12.3); RDW 16.6 % (12.4-16.6)
[2025-07-17 08:15] LABS: GLUCOSE,RANDOM 90.0 mg/dL (74-106)
[2025-07-17 08:16] LABS: TOT PROT 6.2 g/dl (6.4-8.2)
[2025-07-17 08:17] LABS: CO2 22.0 mmol/L (21-32)
[2025-07-17 08:18] LABS: ALK PHOS 84.0 U/L (40-150)
[2025-07-17 08:21] LABS: CREATININE 0.54 mg/dL (0.55-1.3); SGOT/AST 17.0 U/L (5-34); SGPT/ALT 6.0 U/L (0-55)
[2025-07-17] MEDS: MEROPENEM 1 GM in DEXTROSE 5%-WATER 100 ML IVPB SCH (18:03)
[2025-07-18 11:49] LABS: IRON SERUM 12.0 ug/dL (50-175)
[2025-07-18] MEDS: IRON SUCROSE INJECTION 200 MG in SODIUM CHLORIDE 100 ML IVPB ONE (13:22)
[2025-07-18] MEDS: MAGNESIUM OXIDE 400 MG TABLET (FP) PO ONE (15:33)
[2025-07-19 08:45] LABS: ABSOLUTE IMMATURE GRANULOCYTES 0.12 x10^3/uL (0.0-0.031); BASOPHILS # 0.08 x10^3/uL (0.01-0.08); EOSINOPHIL % 1.0 % (0.7-5.8); EOSINOPHILS # 0.19 x10^3/uL (0.04-0.36); MCHC 31.0 g/dl (32.2-35.5); MEAN CELL VOLUME 81.2 fl (79.4-94.8); MEAN PLT VOLUME 10.2 fl (9.4-12.3); MONOCYTE # 1.20 x10^3/uL (0.24-0.86); MONOCYTE % 6.2 % (4.7-12.5); RDW 18.2 % (12.4-16.6)
[2025-07-19 09:20] LABS: GLUCOSE,RANDOM 72 mg/dL (74-106); TOT PROT 6.7 g/dl (6.4-8.2)
[2025-07-19 09:21] LABS: CO2 25 mmol/L (21-32)
[2025-07-19 09:23] LABS: ALK PHOS 85 U/L (40-150)
[2025-07-19 09:25] LABS: CREATININE 0.49 mg/dL (0.55-1.3); SGOT/AST 20 U/L (5-34); SGPT/ALT < 6 U/L (0-55)
[2025-07-19] MEDS: DOCUSATE SODIUM 100 MG CAPSULE (FP) PO PRN (15:28)
[2025-07-19] MEDS: IRON SUCROSE INJECTION 200 MG in SODIUM CHLORIDE 100 ML IVPB ONE (19:42)
[2025-07-20] MEDS: IRON SUCROSE INJECTION 200 MG in SODIUM CHLORIDE 100 ML IVPB ONE (11:23)
[2025-07-21 12:08] LABS: MCHC 31.9 g/dl (32.2-35.5); MEAN CELL VOLUME 80.7 fl (79.4-94.8); MEAN PLT VOLUME 9.8 fl (9.4-12.3); RDW 18.4 % (12.4-16.6)
[2025-07-21 12:30] LABS: GLUCOSE,RANDOM 102.0 mg/dL (74-106)
[2025-07-21 12:31] LABS: TOT PROT 6.7 g/dl (6.4-8.2)
[2025-07-21 12:32] LABS: CO2 30.0 mmol/L (21-32)
[2025-07-21 12:33] LABS: ALK PHOS 91.0 U/L (40-150)
[2025-07-21 12:36] LABS: CREATININE 0.42 mg/dL (0.55-1.3); SGOT/AST 24.0 U/L (5-34); SGPT/ALT 9.0 U/L (0-55)
[2025-07-22 08:33] LABS: ABSOLUTE IMMATURE GRANULOCYTES 0.11 x10^3/uL (0.0-0.031); BASOPHILS # 0.06 x10^3/uL (0.01-0.08); EOSINOPHIL % 0.9 % (0.7-5.8); EOSINOPHILS # 0.17 x10^3/uL (0.04-0.36); MCHC 31.6 g/dl (32.2-35.5); MEAN CELL VOLUME 81.6 fl (79.4-94.8); MEAN PLT VOLUME 9.9 fl (9.4-12.3); MONOCYTE # 1.48 x10^3/uL (0.24-0.86); MONOCYTE % 8.0 % (4.7-12.5); RDW 18.6 % (12.4-16.6)
[2025-07-22 09:13] LABS: GLUCOSE,RANDOM 78.0 mg/dL (74-106); TOT PROT 6.8 g/dl (6.4-8.2)
[2025-07-22 09:14] LABS: CO2 27.0 mmol/L (21-32)
[2025-07-22 09:15] LABS: ALK PHOS 88.0 U/L (40-150)
[2025-07-22 09:18] LABS: SGOT/AST 26.0 U/L (5-34); SGPT/ALT 11.0 U/L (0-55)
[2025-07-22 11:10] LABS: CREATININE 0.46 mg/dL (0.55-1.3)
[2025-07-23 09:16] LABS: MCHC 30.8 g/dl (32.2-35.5); MEAN CELL VOLUME 81.5 fl (79.4-94.8); MEAN PLT VOLUME 9.8 fl (9.4-12.3); RDW 18.4 % (12.4-16.6)
[2025-07-23 09:40] LABS: GLUCOSE,RANDOM 79.0 mg/dL (74-106)
[2025-07-23 09:41] LABS: CO2 29.0 mmol/L (21-32)
[2025-07-23 09:45] VITALS: RESP 18; TEMP 97.7
[2025-07-23 09:45] LABS: CREATININE 0.47 mg/dL (0.55-1.3)
[2025-07-23 15:28] VITALS: BP 127/66; PULSE 98
== END 2025-07-23 17:57 | DRG 871 ==
LOC: JER 12:10 → JERBED 16:25 → J7W 19:00
PROVIDERS: ADMIT Family Medicine; ATTEND Family Medicine
DX: A41.89 Other specified sepsis (principal); L89.314 Pressure ulcer of right buttock, stage 4; E87.1 Hypo-osmolality and hyponatremia; I25.10 Atherosclerotic heart disease of native coronary artery without angina pectoris; E78.5 Hyperlipidemia, unspecified; R41.82 Altered mental status, unspecified; F32.A Depression, unspecified; J44.9 Chronic obstructive pulmonary disease, unspecified; E87.6 Hypokalemia; D64.9 Anemia, unspecified; D72.829 Elevated white blood cell count, unspecified; F17.210 Nicotine dependence, cigarettes, uncomplicated; Z85.3 Personal history of malignant neoplasm of breast
CPT/HCPCS: 36415; 36430; 36569; 71045-TC-FY; 80048; 80053; 81003; 82272; 82436; 82550; 82607; 82728; 82746; 82803; 83540; 83550; 83605; 83735; 83930; 83935; 84133; 84300; 84484; 85025; 85027; 85610; 85651; 85730; 86140; 86850; 86900; 86901; 86922; 87040; 87070; 87077; 87086; 87205; 87637-QW; 93005; 93010; 99285-25; E0186; J0878; J1756; P9038; P9058